=== PATIENT | female | born 1975 ===

== ENCOUNTER 2017-01-29 08:23 | Emergency (ER) | payer OTHER ==
[2017-01-29 08:23] VITALS: BMI 24.4
[2017-01-29 08:35] VITALS: BP 133/87; PULSE 91; RESP 18; TEMP 97; O2SAT 98
--- NOTE | 2017-01-29 09:20 | ED PDOC ---
Upper Extremity Pain/Injury Time Seen by Provider: 01/29/17 08:31 Chief Complaint (Nursing): Upper Extremity Problem/Injury Chief Complaint (Provider): my ring is stuck on my thumb History Per: Patient, [employer] History/Exam Limitations: no limitations Onset/Duration Of Symptoms: Hrs (12), Gradual Quality: Sharp Exacerbating Factor(s): Movement Additional Complaint(s): 41yo female states put a ring on her R thumb last night, fell asleep and awoke w pain to thumb, unable to get ring off. Denies other injury. Unsure what ring is made of, it cost $20 she states. Past Medical History Reviewed: Historical Data, Nursing Documentation, Vital Signs Vital Signs: Last Vital Signs Temp 97 F L 01/29/17 08:32 Pulse 91 H 01/29/17 08:32 Resp 18 01/29/17 08:32 BP 133/87 01/29/17 08:32 Pulse Ox 98 01/29/17 08:32 - Medical History PMH: No Chronic Diseases Denies: Chronic Kidney Disease - Family History Family History: States: Unknown Family Hx - Home Medications Home Medications: Ambulatory Orders Medication Instructions Recorded Metoclopramide [Reglan] 10 mg PO Q8 PRN #30 tab 08/21/16 Naproxen [Naprosyn] 500 mg PO BID PRN #30 tab 08/21/16 Ibuprofen [Motrin Tab] 600 mg PO Q6 PRN #15 tab 01/29/17 - Allergies Allergies/Adverse Reactions: Allergies Allergy/AdvReac Type Severity Reaction Status Date / Time No Known Allergies Allergy Verified 01/29/17 08:31 Review of Systems Musculoskeletal: Positive for: Other (R thumb pain) Physical Exam - Reviewed Nursing Documentation Reviewed: Yes Vital Signs Reviewed: Yes - Physical Exam Appears: Positive for: Non-toxic, Uncomfortable (mild painful distress) Extremity: Positive for: Other (R thumb w ring/ edema cyanosis to distal thumb) - ECG O2 Sat by Pulse Oximetry: 98 Medical Decision Making Medical Decision Making: attempt to cut ring off, unsuccessful- unclear metallic component blade having difficult time. Finger was iced, compressed w elastic band circumferentially. Using surgilube, ring successfully manipulated off finger. Mild abrasion to skin thereafter, bacitracin applied. Disposition - Clinical Impression Clinical Impression: Finger injury - Patient ED Disposition Is Patient to be Admitted: No Counseled Patient/Family Regarding: Studies Performed, Diagnosis, Need For Followup - Disposition Referrals: Carmelita Larson MD [Staff Provider] - Disposition: Routine/Home Disposition Time: 08:55 Condition: STABLE Additional Instructions: Your finger will be sore for 1-2 days. Keep elevated. Use bacitracin 3x daily for 3 days. Do not use rings on your thumb. Prescriptions: Ibuprofen [Motrin Tab] 600 mg PO Q6 PRN #15 tab PRN Reason: Pain, Moderate (4-7) Instructions: Swollen Joint (ED)
== END 2017-01-29 09:44 | disposition home or self-care (01) ==
LOC: H.ER 08:23
DX: S69.91XA Unspecified injury of right wrist, hand and finger(s), initial encounter (principal); W49.04XA Ring or other jewelry causing external constriction, initial encounter; Y92.89 Other specified places as the place of occurrence of the external cause